=== PATIENT | male | born 1990 | race Two or more races ===

== ENCOUNTER 2021-03-05 15:54 | Emergency (ER) | payer SELFPAY ==
[~2021-03-05] VITALS: Ht 172.7 cm; Wt 77.1 kg
[2021-03-05] MEDS ORDERED: methylPREDNISolone SOD SUCC 40 MG/ML VIAL IM ONE (17:45)
[2021-03-05] MEDS ORDERED: FAMOTIDINE 20 MG TABLET PO ONE (17:45)
[2021-03-05] MEDS ORDERED: FAMOTIDINE 20 MG TABLET ONE (17:54)
[2021-03-05] MEDS ORDERED: methylPREDNISolone SOD SUCC 125 MG/2 ML VIAL ONE (17:54)
[2021-03-05] MEDS ORDERED: DEXAMETHASONE 4 MG TABLET PO STA (17:58)
[2021-03-05] MEDS ORDERED: DEXAMETHASONE 4 MG TABLET ONE (18:01)
== END 2021-03-05 18:45 | disposition home or self-care (01) ==
LOC: ER 15:56
DX: T78.40XA Allergy, unspecified, initial encounter (principal); X58.XXXA Exposure to other specified factors, initial encounter; J45.909 Unspecified asthma, uncomplicated
CPT/HCPCS: 99283; J8540; A4663; J2930